=== PATIENT | female | born 1985 ===

== ENCOUNTER 2016-07-11 17:56 | Emergency (ER) | payer MEDICAID, OTHER ==
[2016-07-11 18:04] VITALS: BP 136/96; PULSE 77; RESP 16; TEMP 98; O2SAT 99
--- NOTE | 2016-07-11 18:23 | ED PDOC ---
HPI: Psych/Substance Abuse Time Seen by Provider: 07/11/16 18:03 Chief Complaint (Nursing): Weakness/Neurological Deficit History Per: EMS History/Exam Limitations: no limitations Onset/Duration Of Symptoms: Mins Additional History Per: Patient Additional Complaint(s): Vinay Chavez is a 31 year old female, with a previous medical history of anxiety , asthma and Crohn's disease, who presents to the ED via EMS after [place]. Patient reports to feeling her muscles are "dense" and suspects the cigarette she took from someone had PCP in it. Patient reports to also drinking half a beer earlier today. Patient denies any suicidal ideation, homicidal ideation or visual hallucinations. She reports to intermittently experiencing auditory hallucinations but reports she does not indulge in them. PMD: none provided Past Medical History Reviewed: Historical Data, Nursing Documentation, Vital Signs Vital Signs: Last Vital Signs Temp 98.0 F 07/11/16 18:00 Pulse 77 07/11/16 18:00 Resp 16 07/11/16 18:00 BP 136/96 H 07/11/16 18:00 Pulse Ox 99 07/11/16 18:00 - Medical History PMH: Anxiety, Arthritis, Asthma, Back Problems, Crohn's Disease Denies: Chronic Kidney Disease - Family History Family History: States: Unknown Family Hx - Home Medications Home Medications: Ambulatory Orders Medication Instructions Recorded Famotidine [Pepcid] 40 mg PO DAILY #10 tab 07/29/15 ALPRAZolam [Xanax] 1 mg PO BID 07/30/15 Acetaminophen [Tylenol 325mg tab] 650 mg PO Q4 PRN #0 tab 08/03/15 Miconazole 2% Vaginal [Monistat 7 1 applic VAG HS #0 tube 08/03/15 Vaginal Cream] Oxycodone HCl/Acetaminophen 1 tab PO Q6 #10 tab 08/03/15 [Percocet 325 mg-5 mg] Vit No.128/Iron/FA 1 each PO DAILY #30 tablet 09/06/15 [ Vitamin] Ranitidine HCl 150 mg PO DAILY #30 tab 04/02/16 Albuterol HFA [Ventolin HFA 90 0.09 mg IH Q6 #1 puff 04/24/16 mcg/actuation (8 g)] Albuterol HFA [Ventolin HFA 90 2 puff IH Q4H #1 puff 05/02/16 mcg/actuation (8 g)] Azithromycin [Zithromax] 250 mg PO DAILY #6 tab 05/02/16 predniSONE [predniSONE Tab] 10 mg PO TID #15 tab 05/02/16 - Allergies Allergies/Adverse Reactions: Allergies Allergy/AdvReac Type Severity Reaction Status Date / Time morphine Allergy Mild RASH Verified 05/02/16 08:17 shrimp Allergy Mild RASH Verified 05/02/16 08:17 Review of Systems ROS Statement: Except As Marked, All Systems Reviewed And Found Negative Musculoskeletal: Positive for: Other (feels dense ) Psych: Negative for: Suicidal ideation, Other (homicidal ideation ) Physical Exam - Reviewed Nursing Documentation Reviewed: Yes Vital Signs Reviewed: Yes - Physical Exam Appears: Positive for: Well, Non-toxic, No Acute Distress Cardiovascular/Chest: Positive for: Regular Rate, Rhythm Respiratory: Positive for: CNT, Normal Breath Sounds Neurologic/Psych: Positive for: Alert, Oriented - Laboratory Results Result Diagrams: 07/11/16 18:46 07/11/16 18:46 - ECG O2 Sat by Pulse Oximetry: 99 (RA) Pulse Ox Interpretation: Normal - Progress ED Course And Treament: SEEN BY CRISIS DC HOME DISCUSSED WITH GEORGE DIAGNOSIS PTSD Medical Decision Making Medical Decision Making: Initial Impression: crisis evaluation Initial Plan: * EKG * alcohol serum * labs * urine drug screen * crisis evaluation * urine * urine dipstick * urinalysis * IV NS 1,000 ml at 500 ml/hr * reevaluation Scribe Attestation: Documented by Estefanía Chaudhari, acting as a scribe for Annamarie Jones PA-C. Provider Scribe Attestation: All medical record entries made by the Scribe were at my direction and personally dictated by me. I have reviewed the chart and agree that the record accurately reflects my personal performance of the history, physical exam, medical decision making, and the department course for this patient. I have also personally directed, reviewed, and agree with the discharge instructions and disposition. Disposition - Clinical Impression Clinical Impression: Phencyclidine (PCP) use disorder, mild, PTSD (post-traumatic stress disorder) - Patient ED Disposition Is Patient to be Admitted: No - Disposition Disposition: Routine/Home Disposition Time: 22:09 Condition: FAIR Instructions: Post Traumatic Stress Disorder (ED), Polysubstance Abuse (ED)
[2016-07-11] MEDS ORDERED: Sodium Chloride 0.9% 1,000 ML IV STA (18:26)
[2016-07-11 18:49] LABS: BASO % 0.3 % (0.0-2.0); EOS % 0.2 % (0.0-4.0); HEMATOCRIT 46.2 % (34.0-47.0); LYMPH % 12.5 % (20.0-40.0); MEAN CORPUSCULAR HEMOGLOBIN 30.7 pg (27.0-31.0); MEAN PLATELET VOLUME 9.7 fl (7.2-11.7); MONO # 0.4 K/uL (0.0-0.8); MONO % 4.4 % (0.0-10.0); NEUT # 6.7 K/uL (1.8-7.0); NEUT % 82.6 % (50.0-75.0); RED CELL DISTRIBUTION WIDTH 13.4 % (11.5-14.5); WHITE BLOOD COUNT 8.1 K/uL (4.8-10.8)
[2016-07-11 19:21] LABS: ALB/GLOB RATIO 1.3 (1.0-2.1); ALCOHOL SERUM < 10 mg/dl (0-10); ALKALINE PHOSPHATASE 116 U/L (38-126); ALT/SGPT 33 U/L (9-52); AST/SGOT 30 U/L (14-36); BILIRUBIN,TOTAL 1.2 mg/dl (0.2-1.3); BLOOD UREA NITROGEN 14 mg/dl (7-17); CALCIUM 10.2 mg/dL (8.4-10.2); CARBON DIOXIDE 28 mmol/L (22-30); CHLORIDE 103 mmol/L (98-107); GFR AFRICAN-AMERICAN > 60; GLUCOSE,RANDOM 97 mg/dL (65-105); POTASSIUM 4.3 MMOL/L (3.6-5.0); SODIUM 145 mmol/l (132-148); TOTAL PROTEIN 8.8 G/DL (6.3-8.2)
[2016-07-11 20:43] LABS: RBC URINE 3 /hpf (0-3); URINE BACTERIA RARE (<OCC); URINE BILIRUBIN NEGATIVE (NEGATIVE); URINE BLOOD SMALL (NEGATIVE); URINE COLOR YELLOW (YELLOW); URINE GLUCOSE (UA) NEG (Normal); URINE KETONE 20 mg/dL (NEGATIVE); URINE LEUKOCYTE ESTERASE NEG Leu/uL (Negative); URINE PROTEIN NEGATIVE (NEGATIVE); URINE UROBILINOGEN 0.2-1.0 mg/dL (0.2-1.0); WBC URINE 1 /hpf (0-5)
--- NOTE | 2016-07-12 16:15 | CARD ---
APPROVED REPORT EKG Measurement Heart [id number] <Conclusion> Normal sinus rhythm Normal ECG
== END 2016-07-11 22:18 | disposition home or self-care (01) ==
LOC: H.ER 17:56
DX: F16.10 Hallucinogen abuse, uncomplicated (principal); F43.10 Post-traumatic stress disorder, unspecified

== ENCOUNTER 2016-07-14 03:26 | Emergency (ER) | payer OTHER ==
[2016-07-14 03:43] VITALS: BP 133/94; PULSE 110; RESP 20; TEMP 98.3; O2SAT 99
--- NOTE | 2016-07-14 04:29 | ED PDOC ---
HPI: General Adult Time Seen by Provider: 07/14/16 04:27 Chief Complaint (Nursing): Fever Chief Complaint (Provider): toothache History Per: Patient Additional Complaint(s): pt presents c/o R lower toothache x 2 days. no fever, dyspnea, dysphagia, cp, sob, abd pain, n/v. Past Medical History Reviewed: Historical Data, Nursing Documentation, Vital Signs Vital Signs: Last Vital Signs Temp 98.3 F 07/14/16 03:40 Pulse 110 H 07/14/16 03:40 Resp 20 07/14/16 03:40 BP 133/94 H 07/14/16 03:40 Pulse Ox 99 07/14/16 03:40 - Medical History PMH: Anxiety, Arthritis, Asthma, Back Problems, Crohn's Disease Denies: Chronic Kidney Disease - Family History Family History: States: No Known Family Hx - Social History Current smoker - smoking cessation education provided: Yes Ex-Smoker (has not smoked in the last 12 months): Yes Alcohol: None - Home Medications Home Medications: Ambulatory Orders Medication Instructions Recorded Famotidine [Pepcid] 40 mg PO DAILY #10 tab 07/29/15 ALPRAZolam [Xanax] 1 mg PO BID 07/30/15 Acetaminophen [Tylenol 325mg tab] 650 mg PO Q4 PRN #0 tab 08/03/15 Miconazole 2% Vaginal [Monistat 7 1 applic VAG HS #0 tube 08/03/15 Vaginal Cream] Oxycodone HCl/Acetaminophen 1 tab PO Q6 #10 tab 08/03/15 [Percocet 325 mg-5 mg] Vit No.128/Iron/FA 1 each PO DAILY #30 tablet 09/06/15 [ Vitamin] Ranitidine HCl 150 mg PO DAILY #30 tab 04/02/16 Albuterol HFA [Ventolin HFA 90 0.09 mg IH Q6 #1 puff 04/24/16 mcg/actuation (8 g)] Albuterol HFA [Ventolin HFA 90 2 puff IH Q4H #1 puff 05/02/16 mcg/actuation (8 g)] Azithromycin [Zithromax] 250 mg PO DAILY #6 tab 05/02/16 predniSONE [predniSONE Tab] 10 mg PO TID #15 tab 05/02/16 Ibuprofen [Motrin] 600 mg PO Q8 #20 tab 07/14/16 Penicillin VK [Pen-Vee K] 500 mg PO Q6 #28 tab 07/14/16 - Allergies Allergies/Adverse Reactions: Allergies Allergy/AdvReac Type Severity Reaction Status Date / Time morphine Allergy Mild RASH Verified 07/14/16 03:40 shrimp Allergy Mild RASH Verified 07/14/16 03:40 Review of Systems ROS Statement: Except As Marked, All Systems Reviewed And Found Negative Physical Exam - Reviewed Nursing Documentation Reviewed: Yes Vital Signs Reviewed: Yes - Physical Exam Appears: Positive for: Well, Non-toxic, No Acute Distress Skin: Positive for: Normal Color, Warm, DRY ENT: Positive for: Other (T32 errupting. mild tenderness. no facial swelling. ) Neck: Positive for: Normal, Painless ROM Cardiovascular/Chest: Positive for: Regular Rate, Rhythm Respiratory: Positive for: CNT, Normal Breath Sounds Neurologic/Psych: Positive for: Alert, Oriented - ECG O2 Sat by Pulse Oximetry: 99 Disposition - Clinical Impression Clinical Impression: Tooth eruption - Patient ED Disposition Is Patient to be Admitted: No - Disposition [facility]errals: [facility] [Outside] Disposition: Routine/Home Disposition Time: 04:31 Condition: GOOD Prescriptions: Ibuprofen [Motrin] 600 mg PO Q8 #20 tab Penicillin VK [Pen-Vee K] 500 mg PO Q6 #28 tab Instructions: Toothache (ED) Forms: [facility] ED School/Work Excuse
== END 2016-07-14 04:34 | disposition home or self-care (01) ==
LOC: H.ER 03:26
DX: K08.89 Other specified disorders of teeth and supporting structures (principal); K50.90 Crohn's disease, unspecified, without complications; F41.9 Anxiety disorder, unspecified; J45.909 Unspecified asthma, uncomplicated; Z87.891 Personal history of nicotine dependence

== ENCOUNTER 2016-10-14 21:17 | Observation (INO) | payer SELFPAY ==
[2016-10-14 21:24] VITALS: RESP 16; TEMP 98.1; O2SAT 98
[2016-10-14] MEDS ORDERED: Sodium Chloride 0.9% 1,000 ML IV STA (21:39)
[2016-10-14 22:03] LABS: BASO # 0.1 K/uL (0.0-0.2); BASO % 0.6 % (0.0-2.0); EOS # 0.1 K/uL (0.0-0.7); EOS % 1.4 % (0.0-4.0); HEMATOCRIT 42.2 % (34.0-47.0); LYMPH # 3.1 K/uL (1.0-4.3); LYMPH % 36.5 % (20.0-40.0); MEAN CELL VOLUME 94.3 fl (81.0-99.0); MEAN CORPUSCULAR HEMOGLOBIN 30.9 pg (27.0-31.0); MEAN CORPUSCULAR HGB CONC 32.8 g/dL (33.0-37.0); MEAN PLATELET VOLUME 10.2 fl (7.2-11.7); MONO # 0.5 K/uL (0.0-0.8); MONO % 6.2 % (0.0-10.0); NEUT # 4.8 K/uL (1.8-7.0); NEUT % 55.3 % (50.0-75.0); RED CELL DISTRIBUTION WIDTH 13.7 % (11.5-14.5); WHITE BLOOD COUNT 8.6 K/uL (4.8-10.8)
--- NOTE | 2016-10-14 22:07 | ED PDOC ---
HPI: Psych/Substance Abuse Time Seen by Provider: 10/14/16 21:26 Chief Complaint (Nursing): Substance Abuse Chief Complaint (Provider): Substance Abuse History Per: EMS History/Exam Limitations: no limitations Additional Complaint(s): Patient is a 31 year old female who was brought to the emergency department by police who found her asleep in a chair outside after smoking a PCP cigarette ( presumably). History and other information limited because patient is under the influence. Past Medical History Reviewed: Nursing Documentation, Vital Signs, Unable To Obtain Vital Signs: Last Vital Signs Temp 98.1 F 10/14/16 21:20 Pulse 116 H 10/14/16 21:20 Resp 16 10/14/16 21:20 BP 141/90 10/14/16 21:20 Pulse Ox 98 10/14/16 21:20 - Family History Family History: States: Unknown Family Hx - Social History Alcohol: Social - Allergies Allergies/Adverse Reactions: Allergies Allergy/AdvReac Type Severity Reaction Status Date / Time Unobtainable Allergy Verified 10/14/16 21:19 Review of Systems Review Of Systems: ROS cannot be obtained secondary to pt's inabilty to answer questions. Physical Exam - Reviewed Nursing Documentation Reviewed: Yes Vital Signs Reviewed: Yes - Physical Exam Appears: Positive for: No Acute Distress (intoxicated) Head Exam: Positive for: ATRAUMATIC, NORMAL INSPECTION, NORMOCEPHALIC Skin: Positive for: Normal Color, Warm, Dry Eye Exam: Positive for: Nystagmus (rotary) Neck: Positive for: Normal, Supple Cardiovascular/Chest: Positive for: Regular Rate, Rhythm. Negative for: Murmur Respiratory: Positive for: Normal Breath Sounds. Negative for: Accessory Muscle Use, Respiratory Distress Neurologic/Psych: Positive for: Alert, Oriented (x1, to name only) - Laboratory Results Result Diagrams: 10/14/16 21:51 10/14/16 21:51 - ECG O2 Sat by Pulse Oximetry: 98 (RA) Pulse Ox Interpretation: Normal Medical Decision Making Medical Decision Making: Time: 21:39 Initial Impression: Drug abuse Initial Plan: Labs ED Urine Dipstick ED Urine Normal Saline at 1 L, 500 mls/hr Reevaluation Scribe Attestation: Documented by Augusta Christopher, acting as a scribe for Alonzo Wray MD. Provider Scribe Attestation: All medical record entries made by the Scribe were at my direction and personally dictated by me. I have reviewed the chart and agree that the record accurately reflects my personal performance of the history, physical exam, medical decision making, and the department course for this patient. I have also personally directed, reviewed, and agree with the discharge instructions and disposition. ED OBSERVATION Date of observation admission: 10/14/16 Time of observation admission: 21:39 - Progress Note Progress Note: 10/14/16 21:39 Patient is stable, is currently asleep in ED. 10/14/16 23:20 Patient is stable, is waking up. 10/15/16 00:52 Patient is stable and awake in ED. 10/15/16 02:09 Patient is stable and awake in ED. 10/15/16 02:39 Patient is awake, alert, and oriented, is stable for discharge home. Clinical Impression: PCP Abuse, Alcohol Abuse, Opiate Abuse Disposition - Clinical Impression Clinical Impression: PCP abuse, Alcohol abuse, Opiate abuse, continuous - Patient ED Disposition Is Patient to be Admitted: No - Disposition Disposition: Routine/Home Disposition Time: 02:40 Condition: STABLE
[2016-10-14 23:04] LABS: ALCOHOL SERUM 184 mg/dl (0-10); BLOOD UREA NITROGEN 11 mg/dl (7-17); CALCIUM 8.6 mg/dL (8.4-10.2); CARBON DIOXIDE 22 mmol/L (22-30); CHLORIDE 109 mmol/L (98-107); GFR AFRICAN-AMERICAN > 60; GLUCOSE,RANDOM 102 mg/dL (65-105); POTASSIUM 3.5 MMOL/L (3.6-5.0); SODIUM 146 mmol/l (132-148)
[2016-10-14 23:44] LABS: RBC URINE 21 /hpf (0-3); URINE BACTERIA RARE (<OCC); URINE BILIRUBIN NEGATIVE (NEGATIVE); URINE BLOOD MODERATE (NEGATIVE); URINE COLOR YELLOW (YELLOW); URINE GLUCOSE (UA) NEG (Normal); URINE KETONE NEGATIVE (NEGATIVE); URINE LEUKOCYTE ESTERASE MOD Leu/uL (Negative); URINE PROTEIN 30 mg/dL (NEGATIVE); URINE UROBILINOGEN 0.2-1.0 mg/dL (0.2-1.0); WBC URINE 11 /hpf (0-5)
[2016-10-15 03:26] VITALS: BP 126/78; PULSE 86
== END 2016-10-15 02:38 | disposition home or self-care (01) ==
LOC: H.ER 21:17 → H.EROBSV 21:39 → MERGE 21:39
PROVIDERS: ADMIT Emergency Medicine; ATTEND Emergency Medicine
DX: F16.10 Hallucinogen abuse, uncomplicated (principal); F10.10 Alcohol abuse, uncomplicated; F11.10 Opioid abuse, uncomplicated; Y90.6 Blood alcohol level of 120-199 mg/100 ml
CPT/HCPCS: 80048; 81003; 81025; 85025; 99282; G0378; G0480

== ENCOUNTER 2017-07-31 22:52 | Emergency (ER) | payer MEDICAID, OTHER ==
[2017-07-31 22:55] VITALS: BP 106/70; PULSE 101; TEMP 97.9; O2SAT 97
[2017-07-31] MEDS ORDERED: Albuterol-Ipratrop 3 mg / 0.5 (3 ml) UD IH STA (23:21)
--- NOTE | 2017-07-31 23:25 | ED PDOC ---
HPI: SOB/CHF/COPD Time Seen by Provider: 07/31/17 22:59 Chief Complaint (Nursing): Respiratory Distress Chief Complaint (Provider): cough, sob History Per: Patient History/Exam Limitations: no limitations Onset/Duration Of Symptoms: Days (5) Current Symptoms Are (Timing): Still Present Initiating Event: Out Of Medications Current Respiratory Medications: Albuterol Additional Complaint(s): 32 y/o female history of asthma presents for evaluation of persistent cough with associated shortness of breath x 5 days. Patient states she does not have her own asthma medications currently so has been using her mother's ventolin pump and albuterol nebulizer treatments. Patient states the nebulizer has been helping but as of the last 2 days she has been staying at her boyfriends house and does not have access to the machine and the pump alone is not helping her symptoms. Patient reports she feels phlegm stuck in chest, but won't come out with coughing. Denies fever, chest pain, palpitations, abdominal pain, leg pain/ swelling. Past Medical History Reviewed: Historical Data, Nursing Documentation, Vital Signs Vital Signs: Last Vital Signs Temp 97.9 F 07/31/17 22:53 Pulse 101 H 07/31/17 22:53 Resp 19 07/31/17 23:44 BP 106/70 07/31/17 22:53 Pulse Ox 97 08/01/17 01:18 - Medical History PMH: Anxiety, Arthritis, Asthma, Back Problems, Crohn's Disease Denies: Chronic Kidney Disease - Family History Family History: States: Unknown Family Hx - Immunization History Hx Tetanus Toxoid Vaccination: Yes Hx Influenza Vaccination: No Hx Pneumococcal Vaccination: No - Home Medications Home Medications: Ambulatory Orders Medication Instructions Recorded Famotidine [Pepcid] 40 mg PO DAILY #10 tab 07/29/15 ALPRAZolam [Xanax] 1 mg PO BID 07/30/15 Acetaminophen [Tylenol 325mg tab] 650 mg PO Q4 PRN #0 tab 08/03/15 Miconazole 2% Vaginal [Monistat 7 1 applic VAG HS #0 tube 08/03/15 Vaginal Cream] Oxycodone HCl/Acetaminophen 1 tab PO Q6 #10 tab 08/03/15 [Percocet 325 mg-5 mg] Vit No.128/Iron/FA 1 each PO DAILY #30 tablet 09/06/15 [ Vitamin] Ranitidine HCl 150 mg PO DAILY #30 tab 04/02/16 Albuterol HFA [Ventolin HFA 90 0.09 mg IH Q6 #1 puff 04/24/16 mcg/actuation (8 g)] Albuterol HFA [Ventolin HFA 90 2 puff IH Q4H #1 puff 05/02/16 mcg/actuation (8 g)] Azithromycin [Zithromax] 250 mg PO DAILY #6 tab 05/02/16 predniSONE [predniSONE Tab] 10 mg PO TID #15 tab 05/02/16 Ibuprofen [Motrin] 600 mg PO Q8 #20 tab 07/14/16 Penicillin VK [Penicillin VK Tab] 500 mg PO Q6 #28 tab 07/14/16 Acetaminophen [Tylenol 325mg tab] 650 mg PO Q4 #50 tab 05/21/17 Cyclobenzaprine [Cyclobenzaprine 10 mg PO Q8 #9 tab 05/21/17 HCl] Ibuprofen [Motrin] 600 mg PO TID #30 tab 05/21/17 Albuterol 0.083% [Albuterol 1 vial IH Q6 PRN #30 vial 08/01/17 Sulfate 3 Ml] Albuterol HFA [Ventolin HFA 90 1 puff IH Q4 PRN #1 inh 08/01/17 mcg/actuation (8 g)] Mask, Face [Nebulizer Aerosol Mask 1 dev INH PRN PRN #1 dev 08/01/17 Adult] Nebulizer [Compact Compressor 1 dev XX Q6 PRN #1 dev 08/01/17 Nebulizer] guaiFENesin/Dextromethorphan 1 tab PO Q12 PRN #10 tab 08/01/17 [guaiFENesin/DM 600-30 mg] predniSONE [Prednisone] 60 mg PO DAILY #12 tab 08/01/17 - Allergies Allergies/Adverse Reactions: Allergies Allergy/AdvReac Type Severity Reaction Status Date / Time morphine Allergy Mild RASH Verified 07/14/16 03:40 shrimp Allergy Mild RASH Verified 07/14/16 03:40 Review of Systems ROS Statement: Except As Marked, All Systems Reviewed And Found Negative Respiratory: Positive for: Cough, Shortness of Breath, Wheezing Physical Exam - Reviewed Nursing Documentation Reviewed: Yes Vital Signs Reviewed: Yes - Physical Exam Appears: Positive for: Well, Non-toxic, No Acute Distress Head Exam: Positive for: ATRAUMATIC, NORMAL INSPECTION, NORMOCEPHALIC Skin: Positive for: Normal Color Eye Exam: Positive for: Normal appearance ENT: Positive for: Normal ENT Inspection Cardiovascular/Chest: Positive for: Regular Rate, Rhythm Respiratory: Positive for: Wheezing (mild expiratory wheezing bilaterally). Negative for: Rales, Rhonchi Gastrointestinal/Abdominal: Positive for: Normal Exam Back: Positive for: Normal Inspection Extremity: Positive for: Normal ROM Neurologic/Psych: Positive for: Alert, Oriented - ECG O2 Sat by Pulse Oximetry: 97 - Progress ED Course And Treament: Patient aware of + , LMP 05/27/17; states she is currently in the process of making arrangements for elective AB. duoneb x3, prednisone PO On re-eval, patient states she is feeling better. Patient educated on findings, discharged with rx Albuterol HFA, albuterol nebulized solution, prednisone, mucinex DM Advised fluids, rest Follow up PMD 2-3 days. Return precautions given Disposition - Clinical Impression Clinical Impression: Asthmatic bronchitis - Patient ED Disposition Is Patient to be Admitted: No Counseled Patient/Family Regarding: Studies Performed, Diagnosis, Need For Followup, Rx Given - Disposition Disposition: Routine/Home Disposition Time: 01:55 Condition: IMPROVED Prescriptions: Albuterol 0.083% [Albuterol Sulfate 3 Ml] 1 vial IH Q6 PRN #30 vial PRN Reason: Wheezing Albuterol HFA [Ventolin HFA 90 mcg/actuation (8 g)] 1 puff IH Q4 PRN #1 inh PRN Reason: Wheezing guaiFENesin/Dextromethorphan [guaiFENesin/DM 600-30 mg] 1 tab PO Q12 PRN #10 tab PRN Reason: cough and congestion Mask, Face [Nebulizer Aerosol Mask Adult] 1 dev INH PRN PRN #1 dev PRN Reason: Wheezing Nebulizer [Compact Compressor Nebulizer] 1 dev XX Q6 PRN #1 dev PRN Reason: Wheezing predniSONE [Prednisone] 60 mg PO DAILY #12 tab Instructions: Asthma in Adults, Acute Bronchitis Forms: [employer] [facility] ([place])
[2017-07-31] MEDS ORDERED: Albuterol-Ipratrop 3 mg / 0.5 (3 ml) UD ONE (23:31)
[2017-07-31 23:46] VITALS: RESP 19
[2017-08-01] MEDS ORDERED: Albuterol-Ipratrop 3 mg / 0.5 (3 ml) UD IH STA (01:07)
[2017-08-01] MEDS ORDERED: Albuterol 0.083% Inhal Sol (2.5 mg/3 mL) UD ONE (09:35)
== END 2017-08-01 02:36 | disposition home or self-care (01) ==
LOC: H.ER 22:52
DX: J45.901 Unspecified asthma with (acute) exacerbation (principal); F41.9 Anxiety disorder, unspecified; K50.90 Crohn's disease, unspecified, without complications

== ENCOUNTER 2018-05-29 23:14 | Emergency (ER) | payer MEDICAID, OTHER ==
[2018-05-29 23:18] VITALS: BP 126/54; PULSE 90; RESP 18; TEMP 98.2; O2SAT 98
--- NOTE | 2018-05-29 23:58 | ED PDOC ---
HPI: General Adult Time Seen by Provider: 05/29/18 23:22 Chief Complaint (Nursing): Medical Clearance Chief Complaint (Provider): Medical/psych clerarance History Per: Patient History/Exam Limitations: no limitations Additional Complaint(s): 33yo female, with history of PTSD, substance abuse, brought to ER by [facility] for medical and psychiatric evaluation prior to incarceration. Patient currently reports anxiety, and states she has been noncompliant with her medications x 3 days. She also states she has not taken suboxone which she normally takes. Otherwise, no medical complaints offered. PMD: None provided Past Medical History Reviewed: Historical Data, Nursing Documentation, Vital Signs Vital Signs: Last Vital Signs Temp 98.2 F 05/29/18 23:15 Pulse 90 05/29/18 23:15 Resp 18 05/29/18 23:15 BP 126/54 L 05/29/18 23:15 Pulse Ox 98 05/29/18 23:15 - Medical History PMH: Anxiety, Arthritis, Asthma, Back Problems, Crohn's Disease Denies: Chronic Kidney Disease - Surgical History Surgical History: No Surg Hx - Family History Family History: States: Unknown Family Hx - Immunization History Hx Tetanus Toxoid Vaccination: Yes Hx Influenza Vaccination: No Hx Pneumococcal Vaccination: No - Home Medications Home Medications: Ambulatory Orders Medication Instructions Recorded Famotidine [Pepcid] 40 mg PO DAILY #10 tab 07/29/15 ALPRAZolam [Xanax] 1 mg PO BID 07/30/15 Acetaminophen [Tylenol 325mg tab] 650 mg PO Q4 PRN #0 tab 08/03/15 Miconazole 2% Vaginal [Monistat 7 1 applic VAG HS #0 tube 08/03/15 Vaginal Cream] Oxycodone HCl/Acetaminophen 1 tab PO Q6 #10 tab 08/03/15 [Percocet 325 mg-5 mg] Vit No.128/Iron/FA 1 each PO DAILY #30 tablet 09/06/15 [ Vitamin] Ranitidine HCl 150 mg PO DAILY #30 tab 04/02/16 Albuterol HFA [Ventolin HFA 90 0.09 mg IH Q6 #1 puff 04/24/16 mcg/actuation (8 g)] Albuterol HFA [Ventolin HFA 90 2 puff IH Q4H #1 puff 05/02/16 mcg/actuation (8 g)] Azithromycin [Zithromax] 250 mg PO DAILY #6 tab 05/02/16 predniSONE [predniSONE Tab] 10 mg PO TID #15 tab 05/02/16 Ibuprofen [Motrin] 600 mg PO Q8 #20 tab 07/14/16 Penicillin VK [Penicillin VK Tab] 500 mg PO Q6 #28 tab 07/14/16 Acetaminophen [Tylenol 325mg tab] 650 mg PO Q4 #50 tab 05/21/17 Cyclobenzaprine [Cyclobenzaprine 10 mg PO Q8 #9 tab 05/21/17 HCl] Ibuprofen [Motrin] 600 mg PO TID #30 tab 05/21/17 Albuterol 0.083% [Albuterol 1 vial IH Q6 PRN #30 vial 08/01/17 Sulfate 3 Ml] Albuterol HFA [Ventolin HFA 90 1 puff IH Q4 PRN #1 inh 08/01/17 mcg/actuation (8 g)] Mask, Face [Nebulizer Aerosol Mask 1 dev INH PRN PRN #1 dev 08/01/17 Adult] Nebulizer [Compact Compressor 1 dev XX Q6 PRN #1 dev 08/01/17 Nebulizer] guaiFENesin/Dextromethorphan 1 tab PO Q12 PRN #10 tab 08/01/17 [guaiFENesin/DM 600-30 mg] predniSONE [Prednisone] 60 mg PO DAILY #12 tab 08/01/17 Miconazole Nitrate [Monistat 3] 1 each VG HS #1 kit 05/30/18 - Allergies Allergies/Adverse Reactions: Allergies Allergy/AdvReac Type Severity Reaction Status Date / Time morphine Allergy Mild RASH Verified 07/14/16 03:40 shrimp Allergy Mild RASH Verified 07/14/16 03:40 Review of Systems ROS Statement: Except As Marked, All Systems Reviewed And Found Negative Psych: Positive for: Anxiety Physical Exam - Reviewed Nursing Documentation Reviewed: Yes Vital Signs Reviewed: Yes - Physical Exam Appears: Positive for: Non-toxic, No Acute Distress Head Exam: Positive for: ATRAUMATIC, NORMAL INSPECTION, NORMOCEPHALIC Skin: Positive for: Normal Color Eye Exam: Positive for: Normal appearance Neck: Positive for: Supple Cardiovascular/Chest: Positive for: Regular Rate, Rhythm. Negative for: Tachycardia Respiratory: Positive for: Normal Breath Sounds. Negative for: Respiratory Distress Gastrointestinal/Abdominal: Positive for: Soft Back: Positive for: Normal Inspection Extremity: Positive for: Normal ROM. Negative for: Pedal Edema Neurological/Psych: Positive for: Awake, Alert, Mood/Affect (calm, cooperative). Negative for: Motor/Sensory Deficits - ECG O2 Sat by Pulse Oximetry: 98 (RA) Pulse Ox Interpretation: Normal Medical Decision Making Medical Decision Making: Impression: 33yo female brought by [facility] for medical/psych clearance prior to incarceration Plan: -- UDS -- UDip/Upreg -- Crisis evaluation 0044 Patient seen and evaluated by crisis team, patient psychiatrically cleared for incarceration. Patient given Visatril 25mg PO Medically cleared for incarceration Scribe Attestation: Documented by Danelle Wilkerson, acting as a scribe for Maulik Awan MD. Provider Scribe Attestation: All medical record entries made by the Scribe were at my direction and personally dictated by me. I have reviewed the chart and agree that the record accurately reflects my personal performance of the history, physical exam, medical decision making, and the department course for this patient. I have also personally directed, reviewed, and agree with the discharge instructions and disposition. Disposition - Clinical Impression Clinical Impression: PTSD (post-traumatic stress disorder) - Disposition Disposition: Discharged/Transfer to Law Enforcement Disposition Time: 00:55 Condition: STABLE Additional Instructions: Patient is medically and psychiatrically stable for incarceration Prescriptions: Miconazole Nitrate [Monistat 3] 1 each VG HS #1 kit Instructions: Post-traumatic Stress Disorder, Anxiety, Adult (DC) Forms: [employer] ([place])
[2018-05-30 01:49] LABS: BARBITURATES, UR NEGATIVE (NEGATIVE); BENZODIAZEPINES, UR NEGATIVE (NEGATIVE)
[2018-05-30 02:26] LABS: OPIATES, UR NEGATIVE (NEGATIVE); PHENCYCLIDINE, UR NEGATIVE (NEGATIVE)
== END 2018-05-30 02:34 ==
LOC: H.ER 23:14
DX: F43.10 Post-traumatic stress disorder, unspecified (principal); K50.90 Crohn's disease, unspecified, without complications; Z91.14 Patient's other noncompliance with medication regimen
CPT/HCPCS: 80324; 80345; 80346; 80349; 80353; 80358; 80361; 83992; 99281; Q0177